=== PATIENT | female | born 1945 | race Caucasian/White ===

== ENCOUNTER → 2017-11-19 | Outpatient (CLI) | payer MEDICARE, BC ==
[~2017-11-19] MED LIST: ACET-1600 PO; ASPI-621 PO; ATOR40TA78 PO; CARV12.52 PO; DIPH25CA61 PO; FURO20TA3 PO; GABA300C10 PO; INSU100I13 SC; INSU100I37 SC; LEVO50TA5 PO; LOSA100T6 PO; POTA20TA89 PO; ZOLP5TAB6 PO
[2017-11-19 11:50] LABS: MD NO; MEAN CORPUSCULAR VOLUME 99.5 fL (80-100); MONOCYTES % (AUTO) 8 % (2-9); RED CELL DISTRIBUTION WIDTH 15.3 % (9.6-15.2)
[2017-11-19 11:56] LABS: ALANINE AMINOTRANSFERASE 28 U/L (12-78); ALBUMIN 3.6 g/dL (3.4-5.0); ANION GAP 10 mmol/L (5-15); CHLORIDE 105 mmol/L (98-107); CREATININE 1.86 mg/dL (0.55-1.02)
[2017-11-19 11:59] LABS: ALKALINE PHOSPHATASE 92 U/L (45-117); BILIRUBIN,TOTAL 0.5 mg/dL (0.2-1.0)
[2017-11-19 12:13] LABS: INTERNATIONAL NORMALIZED RATIO 0.89 (0.93-1.1); PROTHROMBIN TIME 9.3 Seconds (9.6-11.5)
[2017-11-19 12:27] LABS: BASOPHILS # (AUTO) 0.05 x10^3/uL (0-0.1); BASOPHILS % (AUTO) 1 % (0-1); EOSINOPHILS # (AUTO) 0.32 x10^3/uL (0-0.4); EOSINOPHILS % (AUTO) 4 % (1-7); LYMPHOCYTES # (AUTO) 0.97 x10^3/uL (1-3.4); LYMPHOCYTES % (AUTO) 14 % (22-44); MEAN CORPUSCULAR HEMOGLOBIN 33.6 pg (27.0-34.8); MEAN CORPUSCULAR HGB CONC 33.8 g/dL (32.4-35.8); MEAN PLATELET VOLUME 7.2 fL (7.4-10.4); MONOCYTES # (AUTO) 0.59 x10^3/uL (0.2-0.8); NEUTROPHILS # (AUTO) 5.21 x10^3/uL (1.8-6.8); NEUTROPHILS % (AUTO) 73 % (42-75); PLATELET COUNT 288 x10^3/uL (130-400); RED BLOOD COUNT 3.67 x10^6/uL (3.82-5.3)
== END | disposition home or self-care (01) ==
LOC: STAR 10:08
PROVIDERS: ATTEND Neurological Surgery
DX: Z01.818 Encounter for other preprocedural examination (principal); I11.9 Hypertensive heart disease without heart failure; I44.0 Atrioventricular block, first degree; I44.5 Left posterior fascicular block; E11.9 Type 2 diabetes mellitus without complications; M48.062 Spinal stenosis, lumbar region with neurogenic claudication
CPT/HCPCS: 36415; 71046; 80053; 85025; 85610; 85730; 93005

== ENCOUNTER 2017-12-15 10:28 | Inpatient (IN) | payer MEDICARE, BC ==
[~2017-12-15] VITALS: Ht 162.6 cm; Wt 89.6 kg
[2017-12-15] MEDS: FENTANYL PF 100 MCG/2ML IV PRN ×7 (07:55→17:55)
[~2017-12-15 10:28] MED LIST changes: +BACITRACIN 50,000 UNIT ONE; +EPINEPHRINE 1 MG/ML, 1ML ONE; +THROMBIN 5,000 UNIT VIAL TP ONE
[2017-12-15 11:13] VITALS: BP 170/93
[2017-12-15] MEDS ORDERED: LACTATED RINGERS 1,000 ML IV SCH (11:13)
[2017-12-15] MEDS ORDERED: FENTANYL PF 250 MCG/5ML ONE (13:28)
[2017-12-15] MEDS ORDERED: CEFAZOLIN 1,000 MG ONE (13:31)
[2017-12-15] MEDS ORDERED: SUCCINYLCHOLINE 20 MG/ML, 10ML ONE (13:31)
[2017-12-15] MEDS ORDERED: DEXAMETHASONE 4 MG/ML, 1ML ONE (13:31)
[2017-12-15] MEDS ORDERED: PROPOFOL 10 MG/ML, 20ML ONE (13:31)
[2017-12-15] MEDS ORDERED: ONDANSETRON 2MG/ML, 2ML ONE ×2 (13:31→18:06)
[2017-12-15] MEDS ORDERED: EPHEDRINE 50 MG/ML, 1ML ONE (13:31)
[2017-12-15] MEDS ORDERED: BUPIVACAINE/PF 0.5% INFIL ONE (14:09)
[2017-12-15] MEDS ORDERED: ACETAMINOPHEN 325 MG TABLET PO PRN (14:30)
[2017-12-15] MEDS ORDERED: OXYcodone 5 MG/5 ML ORAL.SOL UDC PO PRN (14:30)
[2017-12-15] MEDS ORDERED: HYDROmorphone 1 MG/ML, 1ML IV PRN (14:30)
[2017-12-15] MEDS ORDERED: FENTANYL PF 100 MCG/2ML ONE ×2 (15:28→17:42)
[2017-12-15] MEDS ORDERED: LABETALOL 5MG/ML, 20ML ONE (15:28)
[2017-12-15] MEDS: LABETALOL 5MG/ML, 20ML IV PRN ×2 (15:30→15:40)
[2017-12-15] MEDS: DIAZEPAM 5 MG/ML, 2ML IVPush PRN ×4 (15:45→19:15)
[2017-12-15] MEDS ORDERED: OXYcodone 5 MG/5 ML ORAL.SOL UDC ONE (16:28)
[2017-12-15] MEDS ORDERED: hydrALAzine 20 MG/ML, 1ML ONE (17:17)
[2017-12-15] MEDS: hydrALAzine 20 MG/ML, 1ML IV PRN ×2 (17:20→18:06)
[2017-12-15] MEDS: ONDANSETRON 2MG/ML, 2ML IV PRN (18:08)
[2017-12-15 18:15] LABS: TROPONIN I 0.039 ng/mL (0.000-0.045)
[2017-12-15 20:00] VITALS: BP 149/76
[2017-12-15] MEDS: ATORVASTATIN 40 MG TABLET PO SCH (21:31)
[2017-12-15] MEDS ORDERED: ZOLPIDEM 5MG TABLET PO SCH (22:00)
[2017-12-15] MEDS ORDERED: ZOLPIDEM 5MG TABLET ONE (22:14)
[2017-12-15] MEDS: CARVEDILOL 12.5 MG TABLET PO SCH (22:15)
[2017-12-15] MEDS ORDERED: CEFAZOLIN PMX 2GM/50ML 50 ML IVPB SCH (22:30)
[2017-12-16 00:36] VITALS: BP 129/59
[2017-12-16] MEDS: ONDANSETRON 2MG/ML, 2ML IV PRN (00:39)
[2017-12-16] MEDS: CARVEDILOL 12.5 MG TABLET PO SCH ×2 (05:30→17:12)
[2017-12-16 05:58] LABS: ANION GAP 7 mmol/L (5-15); CALCIUM 8.7 mg/dL (8.5-10.1); CHLORIDE 106 mmol/L (98-107); CREATININE 1.66 mg/dL (0.55-1.02)
[2017-12-16] MEDS ORDERED: ASPIRIN 325 MG TABLET PO SCH (06:00)
[2017-12-16 06:51] VITALS: BP 109/66
[2017-12-16] MEDS ORDERED: PROMETHAZINE 25 MG/ML, 1ML IM PRN (07:00)
[2017-12-16] MEDS ORDERED: BISACODYL 10 MG SUPP PR PRN (07:00)
[2017-12-16] MEDS ORDERED: LABETALOL 5MG/ML, 20ML IV PRN (07:00)
[2017-12-16] MEDS ORDERED: ONDANSETRON 2MG/ML, 2ML IV PRN (07:00)
[2017-12-16] MEDS ORDERED: morphine SULFATE 10 MG/ML, 1ML IV PRN (07:00)
[2017-12-16] MEDS ORDERED: OXYcodone/APAP 5/325MG TABLET PO PRN (07:00)
[2017-12-16] MEDS ORDERED: METHOCARBAMOL 750 MG TABLET PO PRN (07:00)
[2017-12-16] MEDS ORDERED: DIPHENHYDRAMINE 50 MG/ML, 1ML IM PRN (07:00)
[2017-12-16] MEDS ORDERED: MAGNESIUM HYDROXIDE 8%, 30ML UDC PO PRN (07:00)
[2017-12-16] MEDS ORDERED: DIPHENHYDRAMINE 50 MG CAPSULE PO PRN (07:00)
[2017-12-16] MEDS: INSULIN GLARGINE 100 UNITS/ML, PEN SQ-INSULIN SCH ×2 (08:22→20:20)
[2017-12-16] MEDS ORDERED: CLONIDINE MC SCH (08:30)
[2017-12-16] MEDS: NS + 20MEQ KCL 1,000 ML IV SCH ×2 (08:35→20:20)
[2017-12-16] MEDS ORDERED: OXYC-302 PO (08:59)
[2017-12-16] MEDS ORDERED: INSULIN LISPRO 100 UNITS/ML, PEN SQ-INSULIN SCH (09:00)
[2017-12-16] MEDS ORDERED: CYCLOBENZAPRINE 10 MG TABLET PO PRN (09:00)
[2017-12-16 09:13] LABS: TROPONIN I 0.115 ng/mL (0.000-0.045)
[2017-12-16] MEDS: LOSARTAN 50MG TABLET PO SCH (09:50)
[2017-12-16] MEDS: FUROSEMIDE 20 MG TABLET PO SCH (09:51)
[2017-12-16] MEDS: GABAPENTIN 300 MG CAPSULE PO SCH ×3 (09:51→20:28)
[2017-12-16] MEDS: POTASSIUM CHLORIDE 20 MEQ TAB.ER.PRT PO SCH ×2 (09:51→20:28)
[2017-12-16] MEDS: LEVOTHYROXINE 50 MCG TABLET PO SCH (09:52)
[2017-12-16] MEDS: SENNA/DOCUSATE TABLET PO SCH (09:52)
[2017-12-16] MEDS: INSULIN LISPRO 100 UNITS/ML, PEN SQ-INSULIN SCH ×4 (09:55→17:11)
[2017-12-16 12:29] LABS: TROPONIN I 0.419 ng/mL (0.000-0.045)
[2017-12-16] MEDS: HYDROcodone/APAP 5/325 TABLET PO PRN ×2 (14:20→20:21)
[2017-12-16 14:21] VITALS: BP 111/67
[2017-12-16 20:15] VITALS: BP 103/67
[2017-12-16] MEDS: ATORVASTATIN 40 MG TABLET PO SCH (20:28)
[2017-12-17 01:30] VITALS: BP 116/67
[2017-12-17] MEDS: HYDROcodone/APAP 5/325 TABLET PO PRN (03:51)
[2017-12-17] MEDS: CARVEDILOL 12.5 MG TABLET PO SCH (06:09)
[2017-12-17] MEDS: LEVOTHYROXINE 50 MCG TABLET PO SCH (06:09)
[2017-12-17 06:12] VITALS: BP 107/49
[2017-12-17] MEDS: INSULIN LISPRO 100 UNITS/ML, PEN SQ-INSULIN SCH ×3 (07:00→15:59)
[2017-12-17] MEDS: NS + 20MEQ KCL 1,000 ML IV SCH (09:40)
[2017-12-17] MEDS: INSULIN GLARGINE 100 UNITS/ML, PEN SQ-INSULIN SCH (10:10)
[2017-12-17 10:13] VITALS: BP 148/81
[2017-12-17 12:31] VITALS: BP 133/79
[2017-12-17] MEDS: POTASSIUM CHLORIDE 20 MEQ TAB.ER.PRT PO SCH (12:45)
[2017-12-17] MEDS: LOSARTAN 50MG TABLET PO SCH (12:45)
[2017-12-17] MEDS: GABAPENTIN 300 MG CAPSULE PO SCH ×2 (12:45→15:58)
[2017-12-17] MEDS: SENNA/DOCUSATE TABLET PO SCH (12:45)
[2017-12-17] MEDS: FUROSEMIDE 20 MG TABLET PO SCH (12:46)
== END 2017-12-17 17:47 | disposition home or self-care (01) | DRG 515 ==
LOC: OUT 10:28 → 5SO 20:27 → OBSVTOIN 12-17 14:26
PROVIDERS: ADMIT Neurological Surgery; ATTEND Neurological Surgery
PROC: 0QB00ZZ Excision of Lumbar Vertebra, Open Approach (ICD-10-PCS; 2017-12-15)
PROC: 01NB0ZZ Release Lumbar Nerve, Open Approach (ICD-10-PCS; principal; 2017-12-15 13:30)
DX: M48.061 Spinal stenosis, lumbar region without neurogenic claudication (principal); N17.0 Acute kidney failure with tubular necrosis; M54.16 Radiculopathy, lumbar region; E11.9 Type 2 diabetes mellitus without complications; E78.5 Hyperlipidemia, unspecified; F41.9 Anxiety disorder, unspecified; I10 Essential (primary) hypertension; I25.5 Ischemic cardiomyopathy; I25.10 Atherosclerotic heart disease of native coronary artery without angina pectoris; I25.2 Old myocardial infarction; Z87.891 Personal history of nicotine dependence
CPT/HCPCS: 36415; 72100; 80048; 82947; 82962; 84484; 93005; G0378; J0171; J0690; J1100; J2405; J2704; J3010; J3360; J3480; J3490; J0330; J0360; J7120